=== PATIENT | male | born 1975 | race Caucasian/White ===

== ENCOUNTER → 2018-03-15 15:09 | Outpatient (CLI) | payer SELFPAY ==
[2018-03-15 15:52] LABS: Basophils % 0.6 % (0.1-2.0); Eosinophils # 0.2 K/mm3 (0.0-0.4); Eosinophils % 3.2 % (0.1-12.0); Hematocrit 43.8 % (42.0-52.0); Hemoglobin 14.8 g/dL (14.1-18.0); Lymphocytes # 2.5 K/mm3 (0.7-4.5); Lymphocytes % 38.7 K/mm3 (10-50); Mean Corpuscular HGB Conc 33.8 g/dL (31.8-35.4); Mean Corpuscular Hemoglobin 31.6 pg (27.0-31.2); Mean Corpuscular Volume 93.6 fl (80-94); Mean Platelet Volume 6.8 fl (7.4-10.4); Monocytes # 0.3 K/mm3 (0.1-1.0); Monocytes % 5.4 % (1.7-9.3); Neutrophils # 3.3 K/mm3 (1.8-7.8); Neutrophils % 52.1 % (37.0-80.0); Platelet Count 247 K/mm3 (142-424); Red Blood Count 4.68 M/mm3 (4.60-6.20); Red Cell Distribution Width 12.2 % (11.5-17.5); White Blood Count 6.4 K/mm3 (4.8-10.8)
[2018-03-15 16:17] LABS: Alanine Aminotransferase 44 U/L (12-78); Albumin Level 3.5 gm/dL (3.4-5.0); Albumin/Globulin Ratio 3.2 (1.1-1.8); Alkaline Phosphatase 82 U/L (46-116); Aspartate Amino Transferase 20 U/L (15-37); Bilirubin,Total 0.3 mg/dL (0.2-1.0); Blood Urea Nitrogen 16 mg/dL (7-18); Calcium 8.6 mg/dL (8.5-10.1); Carbon Dioxide 29 mmol/L (21.0-32.0); Chloride 104 mmol/L (98-107); Creatinine,Serum 0.96 mg/dL (0.70-1.30); Estimated Glomerular Filt Rate 86 ml/min (>60); GFR (African American) 104 ML/MIN (>60); Globulin 1.1 gm/dl (1.3-3.2); Glucose 108 mg/dL (74-106); Sodium 139 mmol/L (136-145); Total Protein,Serum 4.6 gm/dL (6.4-8.2)
== END ==
PROVIDERS: PCP Internal Medicine Adolescent Medicine; Visit Provider Internal Medicine Adolescent Medicine
DX: R21 Rash and other nonspecific skin eruption (principal)
CPT/HCPCS: 36415; 80053; 85025

== ENCOUNTER → 2018-08-06 13:07 | Outpatient (CLI) | payer SELFPAY | PROVIDERS: PCP Family Medicine; Visit Provider Family Medicine | DX: R06.83 Snoring; R53.83 Other fatigue; G47.33 Obstructive sleep apnea (adult) (pediatric) | CPT/HCPCS: 95806 ==

== ENCOUNTER 2023-06-14 03:17 | Emergency (ER) | payer SELFPAY ==
[2023-06-14 03:30] VITALS: BP 173/124; PULSE 74; RESP 20; TEMP 36.6; O2SAT 97; BMI 36.2
--- NOTE | 2023-06-14 03:35 | CT_ITS ---
PROCEDURE INFORMATION: Exam: CT Abdomen And Pelvis With Contrast Exam date and time: 06/14/2023 4:24 AM Age: 48 years old Clinical indication: Abdominal pain; Additional info: Left abd pain TECHNIQUE: Imaging protocol: Computed tomography of the abdomen and pelvis with contrast. Radiation optimization: All CT scans at this facility use at least one of these dose optimization techniques: automated exposure control; mA and/or kV adjustment per patient size (includes targeted exams where dose is matched to clinical indication); or iterative reconstruction. Contrast material: ISOVUE; Contrast volume: 75 ml; Contrast route: IV; COMPARISON: No relevant prior studies available. FINDINGS: Liver: Normal. No mass. Gallbladder and bile ducts: Normal. No calcified stones. No ductal dilation. Pancreas: Normal. No ductal dilation. Spleen: Normal. No splenomegaly. Adrenal glands: Normal. No mass. Kidneys and ureters: Normal. No hydronephrosis. Stomach and bowel: Bowel is unremarkable. Appendix: No evidence of appendicitis. Intraperitoneal space: Unremarkable. No free air. No significant fluid collection. Vasculature: Unremarkable. No abdominal aortic aneurysm. Lymph nodes: There is increased number of minimally prominent mesenteric lymph nodes present. Urinary bladder: Unremarkable as visualized. Reproductive: Unremarkable as visualized. Bones/joints: Unremarkable. No acute fracture. Soft tissues: There is a fat containing left inguinal hernia. IMPRESSION: 1. No acute process identified. 2. Fat containing left inguinal hernia. 3. Increased number of minimally prominent mesenteric lymph nodes, this can be seen with mesenteric panniculitis.
--- NOTE | 2023-06-14 03:36 | ED_ITS ---
Discharge Plan Disposition Patient Disposition: Home, Self-Care Prescriptions Prescriptions: New lidocaine 5 % adhesive patch,medicated 1 patch topical DAILY PRN (Reason: pain) Qty: 30 0RF Rx Instructions: leave on most painful area for up to 12 hrs Referrals Follow up/Referrals: Everton Hare MD [Primary Care Provider] - See instructions Activity Restrictions/Add. Instructions Additional Instructions/Restrictions: Please follow-up with your primary care provider. Please return to the emergency department if you develop any new or worsening symptoms or become concerned for your health. Clinical Impressions Clinical Impression: Abdominal pain, Inguinal hernia, Lymphadenopathy, mesenteric Instructions Patient Instructions: DI for Acute Abdominal Pain Discharge ED Provider: Andrey Rose General Adult HPI General Chief complaint: Abdominal Pain Stated complaint: Abdominal Pain Time Seen by Provider: 06/14/23 03:28 History of Present Illness HPI narrative: 48-year-old male, no significant past medical history presents with left-sided abdominal pain. He reports pain started yesterday, first noticed that after coughing/moving. Pain worsened overnight. He reports he had a fever couple days ago and has had cough/congestion as well. He denies any history of kidney stones or diverticulitis. He denies any urinary symptoms, reports normal bowel movements. Pain is worse with coughing, worse with movement, feels deep inside Related Data Previous Rx's Medication Instructions Recorded lidocaine 5 % topical patch 1 patch topical DAILY PRN pain #30 06/14/23 ea Allergies Allergy/AdvReac Type Severity Reaction Status Date / Time No Known Allergies Allergy Unverified 05/22/17 14:16 [facility] Disclaimer: The information contained in this section may have been updated after the patient was seen, as this information can be updated by other users. Social History Smoking Status: Never smoker alcohol intake: never current occupational status: other Travel in the last 8 weeks: None ROS Obtained: Yes All systems reviewed & no additional complaints except as documented Physical Exam General General appearance: alert and in no apparent distress Head Head exam: atraumatic and normocephalic Eye Eye exam: Present normal appearance, PERRL and EOMI ENT ENT exam: Present normal oropharynx and normal external ear exam Neck Neck exam: Present normal inspection and full ROM Chest Chest inspection: Present normal inspection and symmetric chest wall rise; Absent tenderness Respiratory Respiratory exam: Present normal lung sounds bilaterally; Absent respiratory distress Cardiovascular Cardiovascular exam: Present regular rate and normal rhythm Abdominal Exam Abdominal exam: Present soft and tenderness (Left upper quadrant, left lower thea drant, mild. Patient reports it does not reproduce his pain); Absent distention or guarding Extremities Exam Extremities exam: Present normal inspection; Absent edema or joint swelling Back Exam Back exam: Present normal inspection; Absent tenderness Neurological Exam Neurological exam: Present alert and oriented X3; Absent motor sensory deficit Psychiatric Psychiatric exam: Present normal affect and normal mood Skin Skin exam: Present warm, dry and normal color Lymphatic Lymphatic Findings: no adenopathy Medical Decision Making Medical Records Medical records reviewed: Yes I reviewed the patient's medical records. Wolf Inquiry Pt receiving controlled substance: No Wolf was queried for this patient: No Vital Signs: 06/14/23 03:30 06/14/23 04:00 06/14/23 05:00 Temperature 97.8 F Temperature Source Oral Pulse Rate 63 Pulse Rate [Left Radial] 74 Respiratory Rate 20 Blood Pressure 158/107 H 151/105 H Blood Pressure [Right Arm] 173/124 H Blood Pressure Mean 127 Blood Pressure Mean [Right Arm] 140 Blood Pressure Source [Right Arm] Automatic Cuff Blood Pressure Position [Right Arm] Sitting 02 Sat by Pulse Oximetry 97 95 Oxygen Delivery Method Room Air Lab Data Lab results reviewed: Yes I reviewed the patient's lab results. Lab Results 06/14/23 03:25: WBC 7.0, RBC 5.05, Hgb 16.7, Hct 49.3, MCV 97.8 H, MCH 33.0 H, MCHC 33.7, RDW 12.8, Plt Count 190, MPV 8.2, Neut % (Auto) 52.2, Lymph % (Auto) 36.8, Ashley % (Auto) 7.8, Eos % (Auto) 2.3, Baso % (Auto) 0.8, Neut # (Auto) 3.6, Lymph # (Auto) 2.6, Ashley # (Auto) 0.5, Eos # (Auto) 0.2, Baso # (Auto) 0.1, Sodium 141, Potassium 4.5, Chloride 106, Carbon Dioxide 28, Anion Gap 11.5, BUN 18, Creatinine 0.80, Estimated Creat Clear 190, Estimated GFR 104, Est GFR ( Amer) 125, Glucose 107 H, Calcium 8.4, Total Bilirubin 0.4, AST 29, ALT 35, Alkaline Phosphatase 80, Total Protein 6.9, Albumin 3.9, Globulin 3.0, Albumin/Globulin Ratio 1.3, Lipase 300 06/14/23 03:53: Urine Color Yellow, Urine Appearance Clear, Urine pH 5.5, Ur Specific [place] >= 1.030, Urine Protein Negative, Urine Glucose (UA) Negative, Urine Ketones Negative, Urine Blood Negative, Urine Nitrate Negative, Urine Bili fink Negative, Urine Urobilinogen 0.2, Ur Leukocyte Esterase Negative, Urine WBC Occasional, Ur Squamous Epith Cells Occasional, Urine Bacteria 1+, Urine Mucus 1+ 06/14/23 03:25 06/14/23 03:25 Orders (Tests/Meds): ED MEDICATIONS Generic Name Dose Route Start Last Admin Trade Name Freq PRN Reason Stop Dose Admin Sodium Chloride 10 ml 06/14/23 04:41 06/14/23 04:41 Sodium Chloride 0.9% 10ml Syr (Rad Only) IV 07/14/23 04:40 10 ml NEEDED PRN Administration Maintain IV Site Discontinued Medications Generic Name Dose Route Start Last Admin Trade Name Freq PRN Reason Stop Dose Admin Iopamidol 75 ml 06/14/23 04:41 06/14/23 04:41 Iopamidol-370 (76%);100ml Bottle IV 06/14/23 04:42 75 ml ONCE ONE Administration Ketorolac Tromethamine 30 mg 06/14/23 03:35 06/14/23 04:05 Ketorolac 30mg/Ml Vial IV 06/14/23 03:36 30 mg ONCE ONE Administration Lidocaine 1 each 06/14/23 03:35 06/14/23 04:05 Lidocaine 5% Transdermal Patch TP 06/14/23 03:36 1 each ONCE ONE Administration ORDERS Category Date Time Status CT abdomen pelvis w con Stat Cat Scan 06/14/23 03:35 Completed CXR --portable [XR chest portable] Stat Exams 06/14/23 03:37 Completed CBC w/Auto Diff [Complete Blood Count Auto Diff] Stat Lab 06/14/23 03:25 Completed CMP [Comprehensive Metabolic Panel] Stat Lab 06/14/23 03:25 Completed Lipase Stat Lab 06/14/23 03:25 Completed UA [Urinalysis and Microscopic] Stat Lab 06/14/23 03:53 Completed Medical Decision Narrative: 48-year-old male with no significant past medical history presents with worsening left-sided abdominal pain that is produced with coughing. History was obtained via conversation with patient. On arrival, patient is [afebrile, hemodynamically stable, satting appropriately, alert, oriented x4, GCS 15], moving all extremities spontaneously. Full physical exam performed and significant for mild left-sided abdominal tenderness. Differential includes but is not limited to diverticulitis, musculoskeletal pain, splenic pathology, pancreatitis, renal pathology, pneumonia, pneumothorax Patient was given IV Toradol, lidocaine patch, for symptomatic management and correction of underlying abnormalities. Workup initiated including CBC CMP li pase UA CT Abdo pelvis IV contrast chest x-ray. On re-evaluation, patient [remains afebrile, HD stable.] Laboratory workup independently interpreted by me and significant for normal renal function, urine not consistent with infection, lipase within normal limits. Imaging independently interpreted by me and significant for chest x-ray without focal lung opacity, CT scan shows no evidence of diverticulitis, obstructive nephrolithiasis or other apparent pathology to explain patient's abdominal pain. Does show a incidental fat-containing inguinal hernia on the left. Also shows some dilated abdominal lymph nodes. Given patient's recent fever and illness, that may explain it. See radiology read for full review of final results. Given patient history, exam and workup, patient's presentation most likely represents musculoskeletal abdominal pain as result of recent coughing. These findings were communicated to patient. He was discharged in stable condition with instructions to take Tylenol and ibuprofen as needed for pain. Procedures Risk/Benefits of Procedure(s) Were Explained: Yes Critical Care Critical Care Time Critical Care Time: No
--- NOTE | 2023-06-14 03:37 | XR_ITS ---
PROCEDURE INFORMATION: Exam: XR Chest Exam date and time: 06/14/2023 4:42 AM Age: 48 years old Clinical indication: Cough and fever; Additional info: Cough, fever TECHNIQUE: Imaging protocol: Radiologic exam of the chest. Views: 1 view. COMPARISON: CT ABDOMEN PELVIS W CON 06/14/2023 4:24 AM FINDINGS: Lungs: Unremarkable. No consolidation. Pleural spaces: Unremarkable. No pleural effusion. No pneumothorax. Heart/Mediastinum: Unremarkable. No cardiomegaly. Bones/joints: Unremarkable. IMPRESSION: No acute findings.
[2023-06-14 03:42] LABS: Basophils # 0.1 K/mm3 (0-0.2); Basophils % 0.8 % (0.1-2.0); Eosinophils # 0.2 K/mm3 (0.0-0.4); Eosinophils % 2.3 % (0.1-12.0); Hematocrit 49.3 % (42.0-52.0); Hemoglobin 16.7 g/dL (14.1-18.0); Lymphocytes # 2.6 K/mm3 (0.7-4.5); Lymphocytes % 36.8 % (10-50); Mean Corpuscular HGB Conc 33.7 g/dL (31.8-35.4); Mean Corpuscular Volume 97.8 fl (80-94); Mean Platelet Volume 8.2 fl (7.4-10.4); Monocytes # 0.5 K/mm3 (0.1-1.0); Monocytes % 7.8 % (1.7-9.3); Neutrophils # 3.6 K/mm3 (1.8-7.8); Neutrophils % 52.2 % (37.0-80.0); Platelet Count 190 K/mm3 (142-424); Red Blood Count 5.05 M/mm3 (4.60-6.20); Red Cell Distribution Width 12.8 % (11.5-17.5)
[2023-06-14 03:44] LABS: Chloride 106 mmol/L (98-107); Potassium 4.5 mmoL/L (3.5-5.1); Sodium 141 mmol/L (136-145)
[2023-06-14 03:46] LABS: Alanine Aminotransferase 35 U/L (12-78); Alkaline Phosphatase 80 U/L (38-126); Aspartate Amino Transferase 29 U/L (17-59); Bilirubin,Total 0.4 mg/dl (0.2-1.3); Blood Urea Nitrogen 18 mg/dl (9-20); Creatinine Clearance Estimated 190 mL/min (50-200); Estimated Glomerular Filt Rate 104 ml/min (>60); GFR (African American) 125 ML/MIN (>60)
[2023-06-14 03:47] LABS: Albumin Level 3.9 g/dl (3.5-5.0); Albumin/Globulin Ratio 1.3 (1.1-1.8); Anion Gap 11.5 mEq/L (5-15); Calcium 8.4 mg/dl (8.4-10.2); Carbon Dioxide 28 mmol/L (22.0-30.0); Glucose 107 mg/dl (74-100); Lipase 300 U/L (23-300); Total Protein,Serum 6.9 g/dl (6.3-8.2)
[2023-06-14 04:00] VITALS: BP 158/107; PULSE 63; O2SAT 95
[2023-06-14] MEDS: KETOROLAC 30MG/ML VIAL 30 MG IV (04:05)
[2023-06-14] MEDS: LIDOCAINE 5% TRANSDERMAL PATCH 1 EACH TP (04:05)
--- NOTE | 2023-06-14 04:22 | PC.NURSE ---
patient gone to CT at this time.
[2023-06-14 04:32] LABS: Microscopic, Urine URINE MICROSCOPIC (MICROSCOPIC)
[2023-06-14 04:33] LABS: Appearance,Urine CLEAR (Clear); Blood, Urine Negative (Negative); Color,Urine YELLOW (Yellow); Glucose,Urine (UA) Negative (Negative); Ketones,Urine Negative (Negative); Leukocyte Esterase,Urine Negative (Negative); Nitrate,Urine Negative (Negative); PH,Urine 5.5 (5.0-8.5); Protein,Urine Negative (Negative); Specific Gravity, Urine >= 1.030 (1.005-1.030); Urobilinogen,Urine 0.2 EU/dl (0.2)
--- NOTE | 2023-06-14 04:36 | PC.NURSE ---
patient back in room at this time.
[2023-06-14] MEDS: IOPAMIDOL-370 (76%);100ML BOTTLE 75 ML IV (04:41)
[2023-06-14] MEDS: SODIUM CHLORIDE 0.9% 10ML SYR (RAD ONLY) 10 ML IV (04:41)
[2023-06-14 04:50] LABS: Bilirubin,Urine Negative (Negative)
[2023-06-14 04:57] LABS: Bacteria,Urine 1+ /lpf; Mucus,Urine 1+ /lpf; Squamous Epithelial Cell,Urine Occasional #/hpf (0-5); WBC,Urine Occasional #/hpf (0-3)
[2023-06-14 05:00] VITALS: BP 151/105
[2023-06-14 06:02] VITALS: BP 141/104; PULSE 59; RESP 18; TEMP 36.7; O2SAT 96
== END 2023-06-14 06:05 | disposition home or self-care (01) ==
PROVIDERS: Emergency Provider Emergency Medicine; PCP Family Medicine
DX: K40.90 Unilateral inguinal hernia, without obstruction or gangrene, not specified as recurrent (principal); R10.9 Unspecified abdominal pain; I88.0 Nonspecific mesenteric lymphadenitis; R05.9 Cough, unspecified; R50.9 Fever, unspecified; R09.81 Nasal congestion
CPT/HCPCS: 71045; 74177; 80053; 81001; 83690; 85025; 96374; 99285; Q9967